=== PATIENT | male | born 1975 | race African-American/Black ===

== ENCOUNTER 2017-12-19 14:30 | Emergency (ER) | payer OTHER ==
[~2017-12-19] VITALS: Ht 182.9 cm; Wt 91.0 kg
[2017-12-19] MEDS ORDERED: METHOCARBAMOL 500MG TABLET PO ONE (15:15)
[2017-12-19] MEDS ORDERED: IBUPROFEN 600MG TABLET PO ONE (15:15)
[2017-12-19 19:04] VITALS: BP 127/77
== END 2017-12-19 19:07 | disposition home or self-care (01) ==
LOC: ER 15:54
DX: M54.5 Low back pain (principal); M54.2 Cervicalgia; V89.2XXA Person injured in unspecified motor-vehicle accident, traffic, initial encounter; Y93.89 Activity, other specified; Y92.89 Other specified places as the place of occurrence of the external cause; Y99.8 Other external cause status
CPT/HCPCS: 72110; 99284

== ENCOUNTER 2017-12-30 02:59 | Emergency (ER) | payer OTHER ==
[~2017-12-30] VITALS: Ht 182.9 cm; Wt 91.0 kg
[2017-12-30 03:35] VITALS: BP 126/75
== END 2017-12-30 08:00 | disposition left against medical advice (07) ==
LOC: ER 06:03
DX: S80.811A Abrasion, right lower leg, initial encounter (principal); J45.909 Unspecified asthma, uncomplicated; F17.200 Nicotine dependence, unspecified, uncomplicated; V43.52XA Car driver injured in collision with other type car in traffic accident, initial encounter; Y93.89 Activity, other specified; Y92.488 Other paved roadways as the place of occurrence of the external cause
CPT/HCPCS: 99281

== ENCOUNTER 2019-01-28 12:47 | Emergency (ER) | payer OTHER ==
[~2019-01-28] VITALS: Ht 182.9 cm; Wt 76.0 kg
[2019-01-28] MEDS ORDERED: KETOROLAC 60MG/2ML VIAL IM STA (16:04)
[2019-01-28] MEDS ORDERED: MAGNESIUM/ALUMINUM HYDROXIDE/SIMETHICONE 30ML UDC PO STA (16:04)
[2019-01-28 16:39] LABS: HEMATOCRIT. 47.3 % (42.0-52.0); HEMOGLOBIN. 15.6 g/dL (14.0-18.0); MEAN CORPUSCULAR HEMOGLOBIN 31.3 pg (28.0-32.0); MEAN CORPUSCULAR VOLUME 95.1 fL (80.0-94.0); MEAN PLATELET VOLUME 9.3 fl (7.4-10.4); PLATELET 135 x1000/uL (130-400); RED BLOOD CELL COUNT 4.97 mill/uL (4.7-6.1); RED CELL DISTRIBUTION WIDTH 15.8 % (11.6-14.6)
[2019-01-28 16:43] LABS: CHLORIDE 104 mEq/L (98-107); INR 1.1; PROTHROMBIN TIME 11.1 sec (9.6-11.0)
[2019-01-28 16:59] LABS: PLATELET ESTIMATE NORMAL
[2019-01-28 18:16] VITALS: BP 126/76
== END 2019-01-28 20:20 | disposition home or self-care (01) ==
LOC: ER 12:47
DX: R10.11 Right upper quadrant pain (principal); R11.0 Nausea; F12.10 Cannabis abuse, uncomplicated; Z87.891 Personal history of nicotine dependence; Z98.890 Other specified postprocedural states
CPT/HCPCS: 36415; 76705; 80053; 83690; 85025; 85610; 99284; J1885

== ENCOUNTER 2020-07-28 17:01 | Emergency (ER) | payer OTHER ==
[~2020-07-28] VITALS: Ht 182.9 cm; Wt 82.0 kg
[2020-07-28 17:16] VITALS: BP 133/89
== END 2020-07-28 19:40 | disposition home or self-care (01) ==
LOC: ER 17:01
DX: S92.352A Displaced fracture of fifth metatarsal bone, left foot, initial encounter for closed fracture (principal); X58.XXXA Exposure to other specified factors, initial encounter; Y93.89 Activity, other specified; Y92.89 Other specified places as the place of occurrence of the external cause; Y99.8 Other external cause status; F12.10 Cannabis abuse, uncomplicated
CPT/HCPCS: 29515; 73630; 99283

== ENCOUNTER 2021-05-03 07:41 | Emergency (ER) | payer MEDICAID, OTHER ==
[~2021-05-03] VITALS: Ht 182.9 cm; Wt 91.0 kg
[2021-05-03] MEDS ORDERED: IBUPROFEN 400MG TABLET PO ONE (08:30)
[2021-05-03 08:49] VITALS: BP 136/91
[2021-05-03] MEDS ORDERED: TOPUD PO (09:18)
== END 2021-05-03 09:31 | disposition home or self-care (01) ==
LOC: ER 07:41
DX: M25.512 Pain in left shoulder (principal); M54.2 Cervicalgia; F12.120 Cannabis abuse with intoxication, uncomplicated; V43.52XA Car driver injured in collision with other type car in traffic accident, initial encounter; Y93.89 Activity, other specified; Y92.488 Other paved roadways as the place of occurrence of the external cause
CPT/HCPCS: 73030; 99284

== ENCOUNTER 2022-01-26 23:28 | Emergency (ER) | payer MEDICAID, OTHER ==
[~2022-01-26] VITALS: Ht 182.9 cm; Wt 82.0 kg
[~2022-01-26 23:28] MED LIST: TOPUD PO
[2022-01-26 23:44] VITALS: BP 125/85
== END 2022-01-27 02:00 | disposition left against medical advice (07) ==
LOC: ER 23:28
DX: Z53.21 Procedure and treatment not carried out due to patient leaving prior to being seen by health care provider (principal)

== ENCOUNTER 2022-04-17 21:23 | Emergency (ER) | payer OTHER ==
[~2022-04-17] VITALS: Ht 182.9 cm; Wt 79.5 kg
[2022-04-17] MEDS ORDERED: ONDANSETRON HCL 4MG/2ML INJ IV STA (21:24)
[2022-04-17] MEDS ORDERED: TETANUS, DIPHTHERIA, PERTUSSIS VAC/PF 0.5ML (>10YR OLD) IM ONE (21:30)
[2022-04-17] MEDS ORDERED: FENTANYL CITRATE/PF 50MCG/ML 2ML VIAL IV ONE (21:30)
[2022-04-17] MEDS ORDERED: SODIUM CHLORIDE 0.9% 1,000 ML IV ONE (21:30)
[2022-04-17 21:38] VITALS: BP 172/82
== END 2022-04-17 22:10 | disposition short-term general hospital (02) ==
LOC: ER 21:23
DX: S21.111A Laceration without foreign body of right front wall of thorax without penetration into thoracic cavity, initial encounter (principal); W26.8XXA Contact with other sharp object(s), not elsewhere classified, initial encounter; Y93.89 Activity, other specified; Y92.89 Other specified places as the place of occurrence of the external cause; Y99.8 Other external cause status; F12.10 Cannabis abuse, uncomplicated
CPT/HCPCS: 71045; 90471; 90715; 96361; 96374; 99284; J3010; J7030

== ENCOUNTER 2024-06-04 00:20 | Emergency (ER) | payer MEDICAID, OTHER ==
[~2024-06-04] VITALS: Ht 182.9 cm; Wt 79.0 kg
[2024-06-04 00:25] VITALS: O2SAT 99
[2024-06-04 00:30] VITALS: BP 138/99; PULSE 71; RESP 14; TEMP 36.66960; O2SAT 99
[2024-06-04] MEDS ORDERED: LIDOCAINE 5% PATCH TOP SCH (00:45)
[2024-06-04] MEDS ORDERED: KETOROLAC 15MG/ML VIAL IM ONE (00:45)
[2024-06-04] MEDS ORDERED: LIDO700A15 TP (01:19)
[2024-06-04] MEDS ORDERED: NAPR-1176 MT (01:19)
[2024-06-04] MEDS ORDERED: CYCL5TAB3 MT (01:21)
== END 2024-06-04 01:59 | disposition left against medical advice (07) ==
LOC: ER 01:11
DX: M54.50 Low back pain, unspecified (principal); Z79.899 Other long term (current) drug therapy
CPT/HCPCS: 99283; J1885